=== PATIENT | female | born 1975 | race Caucasian/White ===

== ENCOUNTER → 2020-03-01 09:00 | Outpatient (CLI) | payer BC ==
[2016-07-09 23:15] VITALS: BMI 25.1
[~2020-03-01 09:00] MED LIST: ADIPEX-P37.5 MG PO; ALSUMA6 MG/0.5 M SQ; ESGIC TABLET1 TAB PO; HCTZ25 MG PO; HYDROCODON-ACE1 EAC7 PO; MOBIC7.5 MG PO; NEURONTIN600 MG PO; PLAQUENIL200 MG PO; PREDNISONE5 MG PO; SOMA350 MG PO; ZANAFLEX4 MG PO
== END | disposition home or self-care (01) ==
LOC: D.US 09:00
PROVIDERS: ATTEND Surgery
DX: R10.11 Right upper quadrant pain (principal)

== ENCOUNTER → 2020-03-12 15:00 | Outpatient (CLI) | payer BC ==
[2016-07-09 23:15] VITALS: BMI 25.1
== END | disposition home or self-care (01) ==
LOC: D.NM 13:00
PROVIDERS: ATTEND Surgery
DX: R10.11 Right upper quadrant pain (principal)

== ENCOUNTER 2020-03-20 05:43 | Day surgery (SDC) | payer BC ==
[~2020-03-20] VITALS: Ht 172.7 cm; Wt 81.2 kg
--- NOTE | ~2020-03-20 | OP ---
PATIENT NAME: MYRIAM CURRY MEDICAL RECORD: [id number] :71 LOCATION:D.OPS ADMISSION DATE: SURGEON: ZIYAD MUNOZ MD DATE OF OPERATION: 03/20/2020 PREOPERATIVE DIAGNOSES: 1. Biliary dyskinesia. 2. Mixed connective tissue disorder. POSTOPERATIVE DIAGNOSES: 1. Biliary dyskinesia. 2. Mixed connective tissue disorder. PROCEDURE: Laparoscopic cholecystectomy. SURGEON: Ziyad Munoz MD REPORT OF PROCEDURE: The patient's abdomen was prepped and draped in sterile fashion. A cutdown was made on the superior aspect of the umbilicus, 0 Vicryls were placed in the fascia bilaterally and the fascia was incised with 15-blade. As I tried to enter the abdominal cavity, there was noted to be a piece of mesh present, so small opening was made and I was able to penetrate the abdominal cavity. There was some omentum adherent to the anterior abdominal wall and this was pushed down carefully with blunt dissection. The gallbladder was eventually visualized. A 5-mm trocar was placed in the epigastrium and 2 more were placed in the right subcostal region. The gallbladder appeared normal with no signs of inflammatory changes. The cystic artery and cystic duct were dissected free and these were clipped proximally and distally and ligated in standard fashion. The gallbladder was taken off the liver bed using electrocautery and placed in the right upper quadrant. Any bleeding from the liver bed was treated with electrocautery. At this point, we irrigated out the right upper quadrant and assured there was no sign of any bleeding or bile leakage. The ports and insufflation were then removed and the gallbladder was taken out through the umbilicus. The umbilical fascia was closed with interrupted 0 Vicryls times 3. The wounds were then irrigated out with normal saline and infused with 10 mL of 0.25% Marcaine with epinephrine. The skin incisions were all closed with subcutaneous 5-0 Monocryl and dressed appropriately. COMPLICATIONS: None. CONDITION: Stable. ANESTHESIA: General endotracheal and local. BLOOD LOSS: Minimal. TRANSINT:[id number] Voice Confirmation ID: [id number] DOCUMENT ID: [id number] OPERATIVE REPORT [id number] MYRIAM CURRY ZIYAD MUNOZ MD CC: KIERRA GRIFFIN [id number] DICTATION DATE: 03/20/20901 PROCUREMENT REPRESENTATIVE: 03/20/20932 [facility] [address] [place] [address]
[~2020-03-20 05:43] MED LIST changes: +GEMFIBROZIL600 MG PO; +IMURAN50 MG PO; +TRINTELLIX20 MG PO; +VOLTAREN75 MG PO; +vitamin d PO
[2020-03-20 06:20] LABS: BASOPHILS 0.3 % (0-2); EOSINOPHILS 2.3 % (0-7); HEMATOCRIT 38.5 % (36.0-48.0); HEMOGLOBIN 11.8 g/dL (12-16); IMMATURE GRANULOCYTES 0.3 % (0-5); MCHC 30.6 g/dL (31.0-37.0); MCV 91.2 fL (80.0-100.0); MEAN PLATELET VOLUME 10.8 fL (7.4-10.4); MONOCYTES 10.1 % (2-11); RBC 4.22 10x6/uL (4.00-5.40); RDW 14.6 % (11.5-14.5); WBC 3.5 10x3/uL (4.8-10.8)
[2020-03-20 06:21] LABS: PLATELET COUNT 293 10x3/uL (130-400)
[2020-03-20 06:36] LABS: CALC OSMOLALITY 283 mosm/kg (275-300); CALCIUM 9.6 mg/dL (8.5-10.1); CARBON DIOXIDE 25.8 mmol/L (21.0-32.0); CHLORIDE - SERUM 105 mmol/L (98-107); CREATININE - SERUM 0.8 mg/dL (0.6-1.3); GLUCOSE 105 mg/dL (74-106); POTASSIUM - SERUM 3.8 mmol/L (3.5-5.1); SODIUM 141 mmol/L (136-145); UREA NITROGEN 22 mg/dL (7-18); eGFR NON AFRICAN AMERICAN 82 mL/min (90-120)
[2020-03-20 07:01] VITALS: BP 127/60; Ht 172.7 cm; Wt 81.2 kg
[2020-03-20] MEDS ORDERED: HYDROCODON-ACE1 EA10 PO (08:58)
--- NOTE | 2020-03-20 16:12 | NUR ---
1107 PT HAS VOIDED AND C/O PAIN AFTER AMBULATING. PT REQUESTING PAIN MEDICATION BEFORE BEING DISCHARGED HOME 1215 IV DC'D. CATHETER TIP INTACT. NO BLEEDING AT SITE. BANDAID APPLIED. REVIEWED DISCHARGE INSTRUCTIONS WITH PATIENT AND HER WHO BOTH VOICE UNDERSTANDING OF INSTRUCTIONS.
== END 2020-03-20 12:24 | disposition home or self-care (01) ==
LOC: D.OPS 05:43 → D.PAN 08:00 → D.OPS 08:00
PROVIDERS: ATTEND Surgery
DX: K82.8 Other specified diseases of gallbladder (principal); R10.9 Unspecified abdominal pain; R10.11 Right upper quadrant pain; K44.9 Diaphragmatic hernia without obstruction or gangrene; D64.9 Anemia, unspecified; M35.8 Other specified systemic involvement of connective tissue